=== PATIENT | male | born 1955 | race Caucasian/White ===

== ENCOUNTER 2017-12-24 14:37 | Inpatient (IN) | payer MEDICAID ==
[~2017-12-24] VITALS: Ht 188 cm; Wt 81.7 kg
--- OUTSIDE RECORDS SUMMARY | ~2017-12-24 | XMS | Clinical Summary ---
Demographics + + + | Address | [address] | | | [place] [address] | + + + | Home Phone | | + + + | Preferred Language | Unknown | + + + | Marital Status | Single | + + + | Sabianism Affiliation | Unknown | + + + | Race | Unknown | + + + | Ethnic Group | Unknown | + + + Author + + + | Author | [facility] | | | and [place] | + + + | Organization | [facility] | | | and [place] | + + + | Address | Unknown | + + + | Phone | Unavailable | + + + Support + + +---------+ + | Name | Relationship | Address | Phone | + + +---------+ + | GIGI CARR | MICHAEL | Unknown | | + + +---------+ + Care Team Providers + +------+ + | Care [employer] Painter [employer]ader Name | Role | Phone | + +------+ + | Danny Hdz | PP | | + +------+ + Allergies No Known Allergies Current Medications + + +---------+---------+------+------+-------+ | Prescription | Sig. | Disp. | Refills | Star | End | Statu | | | | | | t | Date | s | | | | | | Date | | | + + +---------+---------+------+------+-------+ | ibuprofen | Take 800 mg by mouth | | | | | Activ | | (ADVIL,MOTRIN) 800 | every 6 hours as | | | | | e | | MG tablet | needed for Pain. | | | | | | + + +---------+---------+------+------+-------+ | gabapentin | Take one tablet at | 90 | 2 | 02/06 | | Activ | | (NEURONTIN) 300 mg | night only for the | capsule | | 12/25 | | e | | capsuleIndications: | first 5 days then | | | 16 | | | | Cervical | gradually increase | | | | | | | radiculopathy, DDD | up to 3 times daily | | | | | | | (degenerative disc | as tolerated | | | | | | | disease), cervical | | | | | | | + + +---------+---------+------+------+-------+ Active Problems + + + | Problem | Noted Date | + + + | Cervical radiculopathy | 03/05/2016 | + + + | DDD (degenerative disc disease), cervical | 03/05/2016 | + + + | Chronic left shoulder pain | 03/05/2016 | + + + Family History + + +---------+ + | Medical History | Relation | Name | Comments | + + +---------+ + | Cancer | Brother | Anup | | | | | [place] | | + + +---------+ + | No Known Problems | Child | | | + + +---------+ + | No Known Problems | Child | | | + + +---------+ + | No Known Problems | Child | | | + + +---------+ + | Cancer | Father | LC | Leukemia | | | | Javier | | + + +---------+ + | Heart failure | Maternal | RA | | | | Grandfath | Cruzen | | | | er | | | + + +---------+ + | No Known Problems | Maternal | G. | | | | Grandmoth | Cruzen | | | | er | | | + + +---------+ + | Cancer | Mother | Edga | Skin | | | | [place] | | + + +---------+ + | Heart failure | Mother | Edga | | | | | [place] | | + + +---------+ + | Arthritis | Other | | | + + +---------+ + | Diabetes | Other | | | + + +---------+ + | Other (see comment) | Other | | Kidney problems | + + +---------+ + | No Known Problems | Paternal | | | | | Grandfath | | | | | er | | | + + +---------+ + | No Known Problems | Paternal | | | | | Grandmoth | | | | | er | | | + + +---------+ + + + + + + | Relation | Name | Status | Comments | + + + + + | Brother | | | Cancer | | | | (Age | | | | | 65) | | + + + + + | Brother | Anup | | | | | [place] | | | + + + + + | Child | | Alive | | + + + + + | Child | | Alive | | + + + + + | Child | | Alive | | + + + + + | Child | | Alive | | + + + + + | Child | | | | + + + + + | Child | | | | + + + + + | Child | | | | + + + + + | Father | LC | | Cancer | | | [place] | (Age | | | | | 80) | | + + + + + | Maternal Grandfather | RA Quezada | | Heart failure | | | | (Age | | | | | 65) | | + + + + + | Maternal Grandmother | Denny Quezada | | Old age | | | | (Age | | | | | 80) | | + + + + + | Mother | Edga | | Skin cancer | | | [place] | (Age | | | | | 85) | | + + + + + | Other | | | | + + + + + | Paternal Grandfather | | Other | Not listed | + + + + + | Paternal Grandmother | | Other | Not listed | + + + + + Social History + +-------+ +--------+ + | Tobacco Use | Types | Packs/Day | Years | Date | | | | | Used | | + +-------+ +--------+ + | Former Smoker | | | 20 | Quit: 02/27/2000 | + +-------+ +--------+ + + +------+---+---+ | Smokeless Tobacco: | Chew | | | | Current User | | | | + +------+---+---+ + + | Comments: 1-2 cans per day | + + + + +---------+ + | Alcohol Use | Drinks/We | oz/Week | Comments | | | ek | | | + + +---------+ + | Yes | 0 | 0.0 | social | | | Standard | | | | | drinks or | | | | | | | | | | equivalen | | | | | t | | | + + +---------+ + + + + | Sex Assigned at | Date Recorded | | | | + + + | Not on file | | + + + Last Filed Vital Signs + + + + | Vital Sign | Reading | Time Taken | + + + + | Blood Pressure | 129/75 | 03/05/20162 PST | + + + + | Pulse | 56 | 03/05/20161101 PST | + + + + | Temperature | - | - | + + + + | Respiratory Rate | - | - | + + + + | Oxygen Saturation | - | - | + + + + | Inhaled Oxygen | - | - | | Concentration | | | + + + + | Weight | 82.8 kg (182 lb 9.6 | 03/05/20161101 PST | | | oz) | | + + + + | Height | 188 cm (6' 2") | 03/05/20161101 PST | + + + + | Body Mass Index | 23.44 | 03/05/20161101 PST | + + + + Plan of Treatment + + + + + | Health Maintenance | Due Date | Last Done | Comments | + + + + + | Hepatitis C | | | | | Screening | 5 | | | + + + + + | Vaccine: | | | | | Dtap/Tdap/Td (1 - | 4 | | | | Tdap) | | | | + + + + + | Colorectal Cancer | | | | | Screening | 5 | | | | (Colonoscopy) | | | | + + + + + | Vaccine: Zoster (1 | | | | | of 2) | 5 | | | + + + + + | Vaccine: Influenza | | | | | (#1) | 8 | | | + + + + + Results Not on filefrom Last 3 Months Insurance + +--------+ +--------+ +---------+ | Payer | Benefi | Subscriber | Type | Phone | Address | | | t Plan | ID | | | | | | / | | | | | | | Group | | | | | + +--------+ +--------+ +---------+ | GIVTED | SAIF | [id number] | [place] | [phone] | | WC | | ity | [phone] | | + +--------+ +--------+ +---------+ + +--------+ +--------+ + + | Guarantor Name | Accoun | Relation to | Date | Phone | Billing Address | | | t Type | Patient | of | | | | | | | | | | + +--------+ +--------+ + + | DELFINA CARR | Person | Self [birth year] Home: | [address] [place], | | | al/Fam | | 1955 | [phone] | | | [place] | | | [phone] | | + +--------+ +--------+ + + | DELFINA CARR | Worker | Self | [birth year] | Home: | [address], | | | s Comp | | 1956 | [phone] | | | | | | [phone] | | + +--------+ +--------+ + +
--- NOTE | 2017-12-24 19:55 | NUR ---
PT ARRIVES TO ROOM 127 MED [facility] FOR MENINGITIS. PT IS ALERT AND ORIENTED, WALKS SELF TO BED. C/O 8/10 HEADACHE AT THIS TIME, VERY SENSITIVE TO LIGHTS. ASSESSMENT DONE, PT TAKING SIPS OF WATER, ROOM DARKENED.
--- NOTE | 2017-12-24 20:35 | NUR ---
OXYCODONE GIVEN FOR HEADACHE PAIN, WILL CONT TO MONITOR. 1L BOLUS STARTED AND ABX INFUSING.
--- NOTE | 2017-12-24 21:40 | NUR ---
PT STATES PAIN IS GOING DOWN, NOW 10/14.
--- NOTE | 2017-12-25 01:01 | NUR ---
PT WAS GIVEN OXYCODONE FOR 09/14 HEADACHE, TOOK SOME WATER WITH IT AND SHORTLY AFTER WAS UP AT SIDE OF THE BED VOMITTING, APPRROX 25 ML YELLOW- NO PILLS SEEN IN EMESIS BAG. 4MG IV ZOFRAN GIVEN AND WILL CONT TO MONITOR PAIN AND NAUSEA. PT ALSO UP TO BEDSIDE TO VOID INTO URINAL, HR STEADY WHILE UP.
--- NOTE | 2017-12-25 02:00 | NUR ---
PT RESTING WITH EYES CLOSED, RESP EVEN UNLABORED.
--- NOTE | 2017-12-25 04:28 | NUR ---
AWAKENS, STATE HEADACHE IS STILL THERE BUT ABLE TO SLEEP. NO NAUSEA AT THIS TIME.
--- NOTE | 2017-12-25 06:33 | NUR ---
PT CALLS, REQUESTING PAIN MED. CALLED FOR IV PAIN MED, ORDER GIVEN FOR MORPHINE. MORPHINE 2MG IV GIVEN FOR 7 HEADACHE PAIN WITH 4MG IV ZOFRAN FOR NAUSEA. PT REMAINS VERY SENSITIVE TO LIGHT AND MOVEMENT, BECOMES NAUSEATED AND PAINFUL WITH MOVING SELF IN BED.
--- NOTE | 2017-12-25 09:52 | NUR ---
DR MIJARES INTO SEE PT AT THIS TIME, NEW ORDERS.
--- NOTE | 2017-12-25 11:31 | NUR ---
PT REMAINS ASLEEP AT THIS TIME, TALKED WITH PT'S DAUGHTER VIA PHONE ALL QUESTIONS ANSWERED AT THIS TIME. TALKED WITH PT EARLY ABOUT TALKING WITH HER, AND HE APPROVED.
--- NOTE | 2017-12-25 12:21 | NUR ---
PT CONTIOUES TO SLEEP AT THIS TIME, RESP RATE EVEN AND UNLABORED AT THIS TIME.
--- NOTE | 2017-12-25 14:00 | NUR ---
PT HAS BEEN SLEEPING WELL THIS AFTERNOON. HE IS CURRENTLY AWAKE AT THIS TIME, VS TAKEN SEE FLOW SHEET. PT C/O PAIN, MORPHINE 2 MG IVP GIVEN AND ALSO GAVE PT SOME CHICKEN BROOTH AND FRESH ICE WATER.
--- NOTE | 2017-12-25 15:10 | NUR ---
PT PASSING GAS, BURPING, SOME NAUSEA WITH THE LIQUIDS, BUT AT THIS TIME ABLE TO KEEP THINGS DOWN. PT IS GLAD THAT WE LET HIM SLEEP TODAY. HE IS FEELING BETTER, BUT NOT GREAT YET.
--- NOTE | 2017-12-25 16:19 | NUR ---
PT TOLERATED THE CLEAR LIQUIDS FAIR, CONTIOUES TO BED IN BED, ROOM HAS REMAINED DARK ALL DAY.
--- NOTE | 2017-12-25 16:30 | NUR ---
REPORT CALLED TO FARIBA BERNAL ALL QUESTIONS ANSWERED AT THIS TIME. ALL PERSONAL BELONGINGS AND CURRENT MEDICATIONS SENT WITH PT. PT TRASPORTED VIA BED.
--- NOTE | 2017-12-25 16:46 | NUR ---
PT HAS ARRIVED INTO ROOM 125 ON M/S FROM CCU AT THIS TIME. PT SENSITIVE TO LIGHT AND SOUND, STATING HIS PAIN IS A 8 OUT OF 10 GENERALIZED FROM THE NECK UP RADIATING THROUGHOUT HIS HEAD. ROOM AIR. D5LR RUNNING AT 100 ML/HR AND ACYCLOVIR AT 266 ML/HR. PT STATES HE IS FEELING NAUSEOUS WELL. ASSESSMENT COMPLETED. DROPLET PRECAUTIONS IN PLACE. CALL LIGHT WITHIN REACH. WILL CONTINUE TO MONITOR.
--- NOTE | 2017-12-25 18:05 | NUR ---
PT VS STABLE SINCE ARRIVING TO M/S FROM CCU. PT ARRIVED WITH A C/O NECK AND HEAD PAIN OF AN 8/10. PT ALSO STATED HE WAS NAUSEOUS AND ANXIOUS. PT STATES HIS SENSITIVITY TO LIGHT AND NOISE AT THIS TIME, SO LIGHTS HAVE ALL BEEN TURNED OFF AND THIS RN PLACED A SIGN ON DOOR REMINDING THOSE WHO ENTER TO TALK QUIETLY. PRN ZOFRAN, MORPHINE AND ATIVAN GIVEN SHORTLY PT ARRIVED INTO ROOM, ALL PROVIDING RELIEF OF SYMPTOMS FOR THE PT. ROOM AIR. DROPLET PRECAUTIONS IN PLACE. PT PLEASANT AND COOPERATIVE DESPITE HIS UNCOMFORTABLE STATE. HE STATES HE FEELS WEAK, BUT STRENGTH ASSESSMENT WNL. PT HAS NO QUESTIONS OR CONCERNS AT THIS TIME. FLUIDS RUNNING CONTINUOUSLY. HE'S RESTING IN BED WITH ALL LIGHTS OFF. CALL LIGHT WITHIN REACH. FALL PRECAUTIONS IN PLACE. WILL CONTINUE TO MONITOR.
[2017-12-25] MEDS ORDERED: IBU-200200 MG PO (18:25)
--- NOTE | 2017-12-25 18:25 | NUR ---
MED REC COMPLETE
--- NOTE | 2017-12-25 19:15 | NUR ---
REPORT RECIEVED. PT ASLEEP IN BED. NO REQUESTS AT THIS TIME. CALL LIGHT WITHIN REACH.
--- NOTE | 2017-12-25 22:15 | NUR ---
IN ROOM FOR SHIFT ASSESSMENT. EVENING MEDS ADMINISTERED PER EMAR. . PT AOX4. APPROPRIATE, POLITE. PT'S IV RUNNING WNL. PT C/O PAIN OF 6/10 RELATED TO NECK AND HEAD. PT STATES THE PAIN IS EXACERBATED WITH MOVEMENT. PT GIVEN SCHEDULED APAP, AND PRN PAIN MEDS WELL PER EMAR. PT C/O NAUSEA AND GIVEN PRN ZOFRAN. AFTER PRN ZOFRAN ADMINISTERED, PT C/O NAUSEA, AND VOMITING OF SMALL AMOUNT. PT GIVEN PRN PHENERGAN PER EMAR. PT TOLERATED PHENERGAN WELL, NO C/O N/V AFTER ADMINISTRATION. PT'S LS CLEAR ON RIGHT SIDE. EPIRATORY PLEURAL RUB NOTED ON LEFT SIDE IN ALL LOBES. PT DENIES SOB/CP. BT ACTIVE, ABD NONTENDER. PT GIVEN WARM CHICKEN BROTH PER PT REQUEST. WARM BLANKET PROVIDED. IV SITE IN RAC DRESSING WAS CHANGED WITH NEW OPSITE. IV REMAINS SL, FLUSHES WELL. NO FURTHER REQUESTS AT THIS TIME. CALL LIGHT WITHIN REACH.
--- NOTE | 2017-12-26 00:30 | NUR ---
PT ASLEEP IN BED. NO NEEDS AT THIS TIME. IV RUNNING WNL. CALL LIGHT WITHIN REACH. HYDRATION AT BEDSIDE.
--- NOTE | 2017-12-26 02:30 | NUR ---
PT RESTING IN BED. DENIES NEED FOR PAIN MEDICATION. DENIES ANY NAUSEA. HYDRATION AT BEDSIDE. CALL LIGHT WITHIN REACH. NO REQUESTS AT THIS TIME.
--- NOTE | 2017-12-26 06:13 | NUR ---
PT C/O PAIN OF 8/10 WHILE UP TO VOID IN URINAL. PT STATES THAT PAIN REMAINS IN NECK/ HEAD AREA. PT ASKS FOR PRN PAIN/NAUSEA MEDICATION. PT GIVEN PRN PAIN/ NAUSEA MEDICATION PER EMAR. SCHEDULED ABX HUNG. NO FURTHER REQUESTS. CALL LIGHT WITHIN REACH.
--- NOTE | 2017-12-26 06:14 | NUR ---
PT HAS SLEPT THROUGHOUT MOST OF THE NIGHT. PT HAS RECIEVED PRN PAIN MEDICATION X2 WELL PRN NAUSEA MEDICATION X3. PT DID HAVE EPISODE OF NAUSEA/ VOMITING IN BEGINNING OF SHIFT. HAS NOT VOMITED SINCE. PT REMAINS INDEPENDENT IN ROOM 1 PERSON SBA. APPETITE REMAINS SCARCE. PT GIVEN CHICKEN BROTH BUT DID NOT TOLERATE WELL DUE TO NAUSEA. PT'S PAIN HAS FLUCTUATED BETWEEN 6-8/10 THROUGHOUT THE NIGHT. PT STATES THAT THE ONLY THING THAT HELPS IS THE PRN MORPHINE. PT REMAINS SENSITIVE TO LIGHT/NOISE. EYE SHADE/EAR PLUGS PROVIDED FOR SLEEP. VITAL SIGNS REMAIN STABLE. IV RUNING WNL. NO REQUESTS AT THIS TIME. CALL LIGHT WITHIN REACH.
--- NOTE | 2017-12-26 07:44 | NUR ---
RECIEVED REPORT JUST OUTSIDE PT'S ROOM DOOR, PT IS VERY SENSITIVE TO SOUNDS. THEN WENT IN ROOM WITH GABE MARQUIS, AND DID AM ASSESSMENT. PT HAVING 8/10 HEADACHE AND NECK PAIN. GIVEN PRN OXYCODONE AND ATIVAN BY GABE MARQUIS. PT DENIED OTHER NEEDS. PERSONAL SUPPLIES AND CALL LIGHT IN REACH.
--- NOTE | 2017-12-26 08:31 | NUR ---
PT HAD 100 CC EMESIS. GAVE PHENERGAN 6.25 MG IV PRN. PT CONTINUED TO RATE HEAD AND NECK PAIN 11/14, GAVE MORPHINE 2 MG IV PRN.
--- NOTE | 2017-12-26 09:33 | NUR ---
PATILIYAH IN BED RESTING. PATIENT SIPPING IN TEA AND ATE 1 CRACKER. CALL LIGHT IN REACH. NO FURTHER NEEDS AT THIS TIME.
--- NOTE | 2017-12-26 09:42 | NUR ---
PT IN BED, AWAKE, ALERT. RATES PAIN TO HEAD AND NECK 6/10, STATED THIS IS TOLERABLE. PT DENIES FURTHER NAUSEA AT THIS TIME. TOLERATED A CRACKER. PT REPORTS APETITE POOR DUE TO INTERMITANT NAUSEA.
--- NOTE | 2017-12-26 10:45 | NUR ---
PT REPORTED 7/10 PAIN TO HEAD AND NECK, GAVE MORPHINE 2 MG IV PRN. PT DENIED NAUSEA, REPORTED HE WAS ABLE TO EAT 2 CRACKERS, DRINK SOME WATER, AND SOME TEA. PERSONAL SUPPLIES AND CALL BUTTON IN REACH.
--- NOTE | 2017-12-26 11:45 | NUR ---
PT IN BED, RESTING QUIETLY. REPORTED PAIN TO HEAD AND NECK IMPROVED, AT A TOLERABLE LEVEL AT THIS TIME. RATED PAIN 6/10. DENIED NAUSEA, HAS EATEN 3 CRACKERS, AND IS STILL SIPPING WATER AND TEA. PERSONAL SUPPLIES AND CALL LIGHT IN REACH.
--- NOTE | 2017-12-26 15:48 | NUR ---
PT C/O NAUSEA. GAVE ZOFRAN 4 MG IV PRN. ALSO GAVE PT ACETAMINOPHEN 1000 MG PO SCHEDULED. PT WAS ABLE TO EAT 2 BITES OF GRILLED CHEESE SANDWICH, UNABLE TO EAT ANY MORE. PERSONAL SUPPLIES AND CALL LIGHT IN REACH. PT RATED PAIN TO HEAD AND NECK 7/10, LIGHTS OFF, CURTAIN AND DOOR CLOSED, AND BLINDS PULLED CLOSED FOR PT'S COMFORT.
--- NOTE | 2017-12-26 16:07 | NUR ---
VENESSA RN NOTIFIED THIS RN THAT PT'S IV TO RIGHT AC WAS INADVERTANTLY PULLED OUT BY PT. VENESSA RN NOTIFIED THIS RN THAT IV INSERTION SITE BLED, BUT BLEEDING WAS STOPPED WITH 2X2 GAUZE AND TAPE, AND THAT IV CATHETER TIP WAS INTACT. THIS RN ASSESSED SITE, REPLACED GAUZE AND TAPE WITH 2X2 GAUZE AND COBAN. SITE WNL. PT EATING CHICKEN NOODLE SOUP, TOLERATING WELL THUS FAR.
--- NOTE | 2017-12-26 17:02 | NUR ---
PT UP IN ROOM INDEPENDANTLY, STEADY ON FEET. WISHES TO KEEP ROOM DIM AND QUIET DUE TO MENENGITIS. ON DROPLETTE PRECAUTIONS. HAS HAD A POOR APETITE THIS SHIFT, WITH INTERMITANT EPISODES OF NAUSEA, AND ONE EPISODE OF EMESIS THIS AM. PT RECIEVED PRN ZOFRAN THIS EVENING FOR C/O NAUSEA, AND PT REPORTED THIS WAS EFFECTIVE. PT DID DRINK THE BROTH FROM CHICKEN NOODLE SOUP, AND EAT ONE CRACKER AT DINNER. OTHER THAN THAT, PT HAD 3 CRACKERS, 2 BITES OF A GRILLED CHEESE SANDWICH, AND DRANK TEA AND WATER THIS SHIFT. HAS REPORTED HEAD AND NECK PAIN 6-8/10 THIS SHIFT, REPORTS 6/10 IS A TOLERABLE LEVEL OF PAIN. PT REPORTS POOR PAIN RELIEF WITH PRN OXYCODONE, BETTER PAIN RELIEF FROM PRN MORPHINE. PT HAS RECIEVED MORPHINE 2 MG IV PRN FOR PAIN COVERAGE TODAY. PT'S URINE OUTPUT IS QUANTITY SUFFICIENT, PT URINATES IN URINAL. NO BM THUS FAR THIS SHIFT. PT ALERT, ORIENTED X 4. PT SENSITIVE TO LIGHT, NOISE.
--- NOTE | 2017-12-26 17:50 | NUR ---
PT IN BED, REPORTS THAT THE PAIN TO HIS NECK AND HEAD HAS IMPROVED SOME, RATED PAIN 6/10, REPORTED THAT THIS IS A TOLERABLE LEVEL OF PAIN FOR HIM. DENIED NEEDS. PERSONAL SUPPLIES AND CALL LIGHT IN REACH.
--- NOTE | 2017-12-26 19:30 | NUR ---
REPORT RECIEVED. PT RESTING IN BED. NO NEEDS AT THIS TIME. CALL LIGHT WITHIN REACH.
--- NOTE | 2017-12-26 21:43 | NUR ---
SPOKE WITH ABOUT PATIENT'S ONGOING NAUSEA AND INABILITY TO TOLERATE PO MEDS. NEW ORDERS RECEIVED. VERIFIED USING READ BACK METHOD.
--- NOTE | 2017-12-26 21:55 | NUR ---
IN ROOM FOR SHIFT ASSESSMENT. EVENING MEDS GIVEN. PRN PAIN/ NAUSEA MEDS GIVEN. EDUCATION PROVIDED FOR NEW MED ORDERS. PT AGREEABLE TO NEW MEDICATIONS. QUESTIONS ANSWERED. PT AOX4. APPROPRIATE, PLEASANT. PT REMAINS TO HAVE PAIN RELATED TO NECK/VELAZCO. LIGHT/NOISE SENSITIVITY REMAINS PRESENT. PT'S LS CLEAR IN LEFT SIDE. RIGHT SIDE HAS EXPIRATORY WHEEZES IN BASES. PT DENIES ANY SOB/CP. BT ACTIVE. PT DENIES BM TODAY. ABD NON TENDER. PT GIVEN ICE CREAM PER PT REQUEST. DENIES FURTHER NEEDS. CALL LIGHT WITHIN REACH. HYDRATION AT BEDSIDE.
--- NOTE | 2017-12-26 23:30 | NUR ---
PT SOUND ASLEEP. NO REQUESTS AT THIS TIME. CALL LIGHT WITHIN REACH.
--- NOTE | 2017-12-27 02:09 | NUR ---
PT STATES THAT HE HAS BEEN SLEEPING WELL, AND DENIES NEED FOR PRN PAIN OR NAUSEA MEDICATION. NO NEEDS AT THIS TIME. CALL LIGHT WITHIN REACH. IV RUNNING WNL.
--- NOTE | 2017-12-27 06:06 | NUR ---
PRN PAIN MEDICATION GIVEN. SCHEDULED ABX STARTED. IV RUNNING WNL. PT UP TO SHOWER. IV COVERED. PT DENIES ANY NAUSEA. PAIN RATED AT 6/10. PT DENIES ANY FURTHER NEEDS AT THIS TIME. CALL LIGHT WITHIN REACH.
--- NOTE | 2017-12-27 06:26 | NUR ---
PATIENT FINISHED WITH SHOWER. BED LINENS CHANGED. FRESH GOWN PROVIDED. PATIENT WAS SOMEWHAT SHAKEY WHEN AMBULATING AND IN THE SHOWER. HE DENIES FEELING LIGHTHEADED BUT HE DOES HAVE A VELAZCO AND NAUSEA. PRN MORPHINE GIVEN RIGHT BEFORE SHOWER MAY HAVE CONTRIBUTED TO THE UNSTEADY GAIT. PRN COMPAZINE PROVIDED. PATIENT REPORTS FEELING MUCH BETTER AFTER SETTLING BACK INTO BED.
--- NOTE | 2017-12-27 06:34 | NUR ---
KEEP PT ROOM QUIET AND DARK DUE TO SENSITIVITY FROM MENINGITIS. ON DROPLET PRECAUTIONS. PT CONTINUES TO HAVE CONSISTANT 6/10 PAIN IN NECK AND HEAD. PT RECIEVED PRN MORPHINE X3. PRN ATIVAN/COMPAZINE FOR NAUSEA. PT INDEPENDENT IN ROOM. USES URINAL AT BEDSIDE. NO BM THIS SHIFT. PT DID TOLERATE ICE CREAM AT BEGINNING OF SHIFT. THIS MORNING PT UP TO SHOWER AND C/O NAUSEA AND SEVERAL EPISODES OF EMESIS. SEE EMAR. PT REPORTS HE PREFERS MORPHINE FOR PAIN RELIEF, AND THAT OTHER PRN MEDICATIONS ARE NOT EFFECTIVE. PT'S URINE OUTPUT QS. SCHEDULED IV ABX GIVEN. IV RUNNING WNL. PT AOX4. 1 PERSON ASSIST TO SHOWER THIS MORNING.
--- NOTE | 2017-12-27 09:25 | NUR ---
PT AWAKE IN BED, ALL LIGHTS OFF AND CURTAINS CLOSED. PT REPORTS SENSTIVITY TO LIGHT AND SOUND. REPORTING HEAD AND NECK PAIN 7/10 AT THIS TIME. MEDICATED WITH IV MORPHINE. REPORTS NAUSEA AND HAD SMALL EMESIS AFTER ATTEMPTING TO EAT BREAKFAST THIS MORNING. MEDICATED WITH ATIVAN. PT ALERT AND ORIENTED. IV INFUSING WNL. CALL LIGHT WITHIN REACH.
--- NOTE | 2017-12-27 10:58 | NUR ---
pt is resting in bed with call light in reach. pt ate half of his breakfst but became nauseous and vomitted 50ml. nurse aware. pt asked for urinal to be emptied and did not need anything else at the moment
--- NOTE | 2017-12-27 12:25 | NUR ---
PT ATTEMPTING TEA AND CRACKERS. MOSTLY RESTING. INDPENDENT IN ROOM. CALL LIGHT WITHIN REACH.
--- NOTE | 2017-12-27 14:30 | NUR ---
PT REPORTED THAT HE HAD LARGE EMESIS. MEDICATED WITH IV ATIVAN, AND MORPHINE FOR HEADACHE PAIN. ATTEPMTING TO EAT A COUPLE BITES OF CRACKERS AFTER MED ADMINISTRATION. INDEPENDENT IN ROOM. RESTING IN BED, CALL LIGHT WITHIN REACH.
--- NOTE | 2017-12-27 14:52 | NUR ---
pt is resting in bed safely with call light in reach. pt is very nauseous and dry heaving. nurse notified. pt asked for a 7-up and some crackers to help settle his stomach.
--- NOTE | 2017-12-27 16:32 | NUR ---
PT RESTING IN BED, DENIES NEEDS OR CONCERNS AT THIS TIME. CALL LIGHT WITHIN REACH.
--- NOTE | 2017-12-27 17:21 | NUR ---
PT CONT TO HAVE PAIN AND NAUSEA/VOMITING THROUGHOUT SHIFT. DENIES BM. QS URINE OUTPUT. PT ATTEMPTED TO EAT A FEW TIMES BUT HAD EMESIS. INDEPENDENT IN ROOM. ALERT AND ORIENTED. ON DROPLET PRECAUTIONS. SCHEDULED FOR REPEAT LUNBAR SPINAL IN AM. RECIEVING IV ACYCLOVIR.
--- NOTE | 2017-12-27 17:57 | NUR ---
pt medicated with iv phenergan for complaint of nausea. had another large emesis, approx 300ml. daughter at bedside. call light within reach.
--- NOTE | 2017-12-27 19:13 | NUR ---
pt has been extremely nauseous all day and did not want to eat dinner. pt is resting safely in bed with call light in reach and did not need anything at the moment
--- NOTE | 2017-12-27 19:20 | NUR ---
REPORT RECIEVED. PT RESTING IN BED. NO REQUESTS AT THIS TIME. CALL LIGHT WITHIN REACH.
--- NOTE | 2017-12-27 22:10 | NUR ---
IN ROOM FOR SHIFT ASSESSMENT. EVENING MEDS GIVEN. IV RUNNING WNL. PT AOX4. PT REMAINS TO BE SENSITIVE TO LIGHT/SOUND. PT C/O MARCELINO LEVEL OF 5/10 IN BACK OF NECK/HEAD. PRN PAIN MEDICATION GIVEN PER EMAR. PT C/O SLIGHT NAUSEA. PRN NAUSEA MEDS GIVEN WELL. PT TOLERATED WELL. PT'S LS CLEAR, BT ACTIVE, ABD NONTENDER. PT DENIES BM TODAY. PT STATES THAT HE IS FEELING A LITTLE BETTER AFTER GETTING A GOOD AMOUNT OF SLEEP RECENTLY. ICE CREAM GIVEN PER PT REQUEST. HYDRATION AT BEDSIDE. DENIES FURTHER NEEDS. CALL LIGHT WITHIN REACH.
--- NOTE | 2017-12-28 01:22 | NUR ---
PT SOUND ASLEEP. NO NEEDS AT THIS TIME. CALL LIGHT WITHIN REACH.
--- NOTE | 2017-12-28 02:25 | NUR ---
PT SITTING UP AT BEDSIDE TO VOID IN URINAL. PT STATES THAT HE IS FEELING BETTER, AND HAS BEEN ABLE TO EAT A PIECE OF CHEESE AND SOME CRACKERS W/O ANY NAUSEA. PT DECLINES ANY NAUSEA CURRENTLY. C/O PAIN IN NECK 09/14. PT GIVEN PRN PAIN MEDICATION WELL HOT PACK FOR BEHIND NECK. PT TOLERATED WELL. NO FURTHER NEEDS AT THIS TIME. CALL LIGHT WITHIN REACH.
--- NOTE | 2017-12-28 06:07 | NUR ---
PT STATES THAT HE IS FEELING BETTER. STATES THAT HIS PAIN IS AT A 4-5/10. STATES THAT HE IS COMFORTABLE WITH THAT AND DOES NOT WANT ANY PRN PAIN MEDS. NO C/O NAUSEA. PT STATES THAT HE HAS BEEN ABLE TO HAVE A COUPLE PIECES OF CHEESE AND CRACKERS WITH SIPS OF WATER. PT STATES THAT HE WOULD LIKE TO HAVE A CUP OF COFFEE. WILL MAKE FRESH COFFEE FOR PT PER REQUEST. PT EXCITED THAT HE IS STARTING TO FEEL BETTER AND IS HOPEFUL FOR CONTINUED IMPROVEMENT. NO OTHER REQUESTS AT THIS TIME. CALL LIGHT WITHIN REACH.
--- NOTE | 2017-12-28 08:00 | NUR ---
PT SITTING UP IN BED RESTING AT THIS TIME. PT IS VERY PLEASANT, CALM AND COOPERATIVE. PT IN VERY GOOD SPIRITS, STATING THAT HE FEELS "COMPLETELY BETTER" THAN HE WAS FEELING YESTERDAY. LIGHTS ARE OFF BUT PT STATES THAT THE LIGHT IS NO LONGER BOTHERING HIM. PT STATES THAT HE HAS SOME UPPER NECK PAIN BUT THAT IT IS TOLERABLE AND THE BEST IT HAS FELT IN DAYS. NO C/O N/V. PT APPETITE GREATLY IMPROVED ACCORDING TO PT. HE STATES THAT HE'S BEEN ABLE TO EAT CRACKERS AND DRINK WATER/TEA WITHOUT N/V ISSUES. PT STRONG AND STEADY ON HIS FEET, AMBULATING INDEPENDENTLY IN ROOM. D5LR RUNNING AT 100 ML/HR. ROOM AIR. PT STATES THAT IT HAS BEEN NUMEROUS DAYS SINCE HIS LAST BM BUT THAT HE IS PASSING GAS, THAT HIS BASELINE IS "EVERY FEW DAYS ANYWAYS," AND THAT HIS LITTLE PO INTAKE COULD BE CONTRIBUTING WELL. PT IS STATING THAT HE DOESN'T THINK HE NEEDS SPINAL TAP ANYMORE SINCE HE IS FEELING SO WELL. I WILL FOLLOW UP WITH DR. JULIO IN REGARDS TO THIS CONCERN. NO OTHER QUESTIONS AT THIS TIME. CALL LIGHT WITHIN REACH. DROPLET PRECAUTIONS REMAIN IN PLACE. WILL CONTINUE TO MONITOR.
--- NOTE | 2017-12-28 08:04 | NUR ---
THIS RN AND REFINING MACHINE OPERATOR Adama MOYA JUST LEFT PT'S BEDSIDE AND SPOKE TO DR. JULIO ON PHONE IN REGARDS TO PT WONDERING IF HE STILL NEEDS TO HAVE SPINAL TAP. PT TOLD US BOTH THAT HE FEELS "100% BETTER COMPARED TO YESTERDAY." PT IS APPREHENSIVE ABOUT GETTING TAPPED AND WONDERING IF THIS IS STILL NECESSARY AT THIS TIME. DR. JULIO INFORMED VIA TELEPHONE.
--- NOTE | 2017-12-28 08:09 | NUR ---
PER DR. JULIO, SPINAL TAP IS ON HOLD AT THIS TIME. JOSÉ MIGUEL MOYA IN AGREEANCE.
--- NOTE | 2017-12-28 10:12 | NUR ---
PT RESTING COMFORTABLY IN THE DARK AT THIS TIME WITH VISITOR AT BEDSIDE. PT STATES THAT HE STILL HAS NO PAIN, NO N/V, AND SAID THAT HIS BREAKFAST WENT WELL AND ABLE TO KEEP IT DOWN WITHOUT VOMITTING. HE EVEN WAS REQUESTING A SECOND CUP OF COFFEE. HE HAS NO QUESITONS OR CONCERNS, AND IS IN GOOD SPIRITS DUE TO HIS FEELING SO MUCH BETTER THAN YESTERDAY. CALL LIGHT WITHIN REACH. WILL CONTINUE TO MONITOR.
--- NOTE | 2017-12-28 10:23 | NUR ---
PATIENT RESTING IN BED, FAMILY IN ROOM. PATIENT STATES HE SHOWERED LAST NIGHT AND WASHED UP THIS MORNING AND DOES NOT WANT A SHOWER. PATIENT CALL LIGHT IN REACH. NO OTHER NEEDS AT THIS TIME.
[2017-12-28] MEDS ORDERED: AMOX TR-K CLV1 EAC1 PO (11:00)
[2017-12-28] MEDS ORDERED: PSEUDOEPHEDRINE30 MG PO (11:01)
[2017-12-28] MEDS ORDERED: PROMETHAZINE HC25 M1 PO (11:02)
== END 2017-12-28 12:05 | disposition home or self-care (01) | DRG 76 ==
LOC: ED 14:37 → CCU 14:38 → MS 14:38
PROVIDERS: ADMIT Student in an Organized Health Care Education/Training Program
DX: A87.9 Viral meningitis, unspecified (principal); J01.80 Other acute sinusitis; F17.210 Nicotine dependence, cigarettes, uncomplicated
CPT/HCPCS: 36415; 62270; 70450; 71045; 80048; 80053; 81001; 82945; 83605; 83690; 83735; 84157; 85025; 85032; 86140; 86162; 87536; 89051; 96374; 96375; 96376; 99285; J0133; J0290; J0696; J0780; J1170; J1650; J2060; J2270; J2405; J2550; J3370; J7030; J7120

== ENCOUNTER 2018-06-18 19:01 | Observation (INO) | payer OTHER ==
[~2018-06-18] VITALS: Ht 188 cm; Wt 79.7 kg
[~2018-06-18 19:01] MED LIST: ACYCLOVIR400 MG PO; ACYCLOVIR800 MG PO; AMOX TR-K CLV1 EAC1 PO; IBU-200200 MG PO; PROMETHAZINE HC25 M1 PO; PSEUDOEPHEDRINE30 MG PO
[2018-06-18] MEDS ORDERED: TAMSULOSIN HCL0.4 MG PO (19:15)
--- NOTE | 2018-06-18 23:00 | NUR ---
IN ROOM FOR ASSESSMENT PT RESTING IN BED, AOX4, PT C/O SOME NAUSEA AT THIS TIME WELL VELAZCO/NECK PAIN, RATED 6/10, PT DID HAVE SMALL AMOUNT OF EMESIS APPEARS TO BE BILE, PT STATES THAT EMESIS INCREASES VELAZCO/NECK PAIN. PT GIVEN PRN REGLAN WELL PRN VELAZCO MED PER EMAR, PT DID DRY HEAVE WHEN TRYING TO SWALLOW THE PILL INITIALLY BUT WAS ABLE TO GET IT DOWN. ASSESSMENT COMPLETE. IV FLUIDS INFUSING PER EMAR WNL. BT HYPOACTIVE, LS CLEAR, ON RA, NO C/O SOB/CP, NO COUGH NOTED, PULSES STRONG, REGULAR. CALL LIGHT WITHIN REACH, FALL PRECAUTIONS IN PLACE.
--- NOTE | 2018-06-18 23:12 | NUR ---
2218 - PT ADMITTED FROM ED, C/O DRYHEAVING AND N/V FOR SEVERAL DAYS. ALERT AND ORIENTED, COOPERATIVE WTIH ADMIT QESTIONS, ORIENTED TO ROOM AND HOSP ROUTINES. ICE PACK TO BACK OF NECK. EYE MASK AND EAR PLUGS GIVEN TO PT. PT C/O MILD NECK PAIN BUT IS ABLE TO BEND AND TURN NECK SLOWLY. C/O MILD EYE SENSITIVITY BUT ABLE TO TOLERATE ALL LIGHTS BEING ON DURING ADMIT QUESTIONAIRE. TURNS SELF IN BED . CALL LIGHT AT BEDSIDE, ICE CHIPS AND FLUIDS
--- NOTE | 2018-06-19 00:12 | NUR ---
PT RESTING IN BED, EYES CLOSED, IV FLUIDS INFUSING PER EMAR WNL, NO REQUESTS AT THIS TIME, CALL LIGHT WITHIN REACH, FALL PRECAUTIONS IN PLACE. PT AGREEABLE TO NOTIFY THIS RN IF NAUSEA OR INCREASED PAIN OCCURS. WILL CONTINUE TO MONITOR.
--- NOTE | 2018-06-19 02:26 | NUR ---
VITALS AND I&OS DONE AND CHARTED. BEDSIDE TABLE AND CALL LIGHT IN REACH.
--- NOTE | 2018-06-19 02:35 | NUR ---
IN ROOM TO ADMIN SCHEDULED MEDS, PT AOX4, ASSESSMENT COMPLETE, VSS, PT DENIES SIGNIFICANT PAIN, PT DENIES SIGNIFICANT NAUSEA, TOLERATED PO MED WELL THIS TIME, NO REQUESTS AT THIS TIME, CALL LIGHT WITHIN REACH. FALL PRECAUTIONS IN PLACE. IV FLUIDS INFUSING PER EMAR WNL.
--- NOTE | 2018-06-19 04:38 | NUR ---
PT AOX4, APPROPRIATE, PT RECEIVED, PRN VELAZCO PAIN MEDICATION X1 THIS SHIFT WELL PRN NAUSEA MEDICATION X1 THIS SHIFT, PT DID HAVE ONE EPISODE OF EMESIS, CONSISTED OF BILE, PT RESPONDED WELL TO NAUSEA MEDICATION AND HAS BEEN ABLE TO REST SINCE ADMINISTRATION, PT USING URINAL TO VOID, GOOD UO, IV FLUIDS INFUSING PER EMAR WNL, PT HAS NOT C/O NECK/VELAZCO PAIN SINCE PREVIOUS PRN MED ADMINISTRATION, CALLS APPROPRIATELY, VSS.
--- NOTE | 2018-06-19 05:32 | NUR ---
VITALS AND I&OS DONE AND CHARTED. EMPTIED GARBAGES. BEDSIDE TABLE AND CALL LIGHT IN REACH. PT NEEDS NOTHING AT THIS TIME.
--- NOTE | 2018-06-19 06:32 | NUR ---
PT GIVEN PRN PAIN MED FOR C/O 10/14 PAIN, PT EDUCATED REGARDING PAIN MANAGEMENT, PT AGREES TO NOTIFY THIS RN IF FURTHER PAIN MEDICATION NEEDED, SCHEDULED ABX ADMINISTERED PER EMAR, PRN ZOFRAN GIVEN FOR C/O NAUSE AFTER PO MEDS TAKEN, PT DID DRY HEAVE ONCE BUT WAS NOT PRODUCTIVE, PT GIVEN HOT PACK FOR BACK OF NECK WELL, NO FURTHER REQUESTS, CALL LIGHT WITHIN REACH, FALL PRECAUTIONS IN PLACE. IV FLUIDS INFUSING PER EMAR WNL.
--- NOTE | 2018-06-19 07:15 | NUR ---
REPORT RECEIVED FROM SPORTS MARKETING SPECIALIST RN. PT AWAKE IN BED, DENIES NAUSEA AT THIS TIME. D5 1/2 NS @ 125ML/HR. DENIES NEEDS, CALL LIGHT IN REACH.
--- NOTE | 2018-06-19 09:00 | NUR ---
SPOKE WITH PATIENT IN ROOM. PATIENT STATES HE L[place]ES AL[place] PATIENT STATES HE IS NORMALLY INDEPENDENT AND AMBULATORY. 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 PATIENT STATES HIS PCP IS DR JULIO AT [facility]. PATIENT STATES BEING VERY HAPPY WITH HIS CARE. PATIENT STATES HE DRIVES AND HE DOES HAVE FRIENDS IN HIS AREA THAT HELP IF NEEDED AND WILL HAVE A RIDE HOME WHEN DISCHARGED. PATIENT STATES HE HAS NO NEED OF DME NORMALLY. PATIENT STATES HE USES [facility] IN [place] FOR RX. PATIENTS WISH IS TO DISCHARGE HOME BEFORE. PATIENT FEELS SAFE TO DO THIS. DISCUSSED HE WILL NEED TO F/U WITH DR JULIO IN OFFICE AND THAT HE NEEDS TO BE UNDERSTANDING OF DIAGNOSIS, TESTS, MEDICATIONS (AND SIDE EFFECTS), AND WHAT TO DO IF HE HAS RETURN OF PROBLEMS AFTER DISCHARGE. PATIENT STATES COMPLETE UNDERSTANDING OF THIS. ALSO DISCUSSED HIS USE OF MARIJUANA. DISCUSSED THE CYCLIC VOMITTING SYNDROME THAT CAN HAPPEN WITH USE OF PRODUCTS. HE STATES UNDERSTANDING. HE STATES HE WILL TALK WITH HIS STORE REGARDING SUGGESTIONS ON THIS FOR PRODUCTS LESS LIKELY TO CAUSE NAUSEA. PATIENT HAS NO OTHER QUESTIONS AT THIS TIME.
--- NOTE | 2018-06-19 09:08 | NUR ---
PATIENT RESTING IN BED. SYSTEMS TECHNOLOGIST IN ROOM. VITAL SIGNS AND I&O DONE. CALL LIGHT WITHIN REACH. NO OTHER NEEDS AT THIS TIME
--- NOTE | 2018-06-19 10:20 | NUR ---
HEADACHE ON 10/14. PRN PAIN MEDICAITON ADMINISTERED. CALL LIGHT IN REACH. NO FURTHER NEEDS.
--- NOTE | 2018-06-19 10:54 | NUR ---
PATIENT RESTING IN BED. PATIENT REFUSED TO TAKE A SHOWER TODAY. CALL LIGHT WITHIN REACH. NO OTHER NEEDS AT THIS TIME
--- NOTE | 2018-06-19 12:00 | NUR ---
PT WITH 1/2 SANDWITCH FOR LUNCH. ATE 100%. NO NAUSEA OR VOMITTING PRESENT.
--- NOTE | 2018-06-19 13:14 | NUR ---
PATIENT RESTING IN BED. VITAL SIGNS AND I&O DONE. PATIENT'S LUNCH ORDERED. HOT TE GIVEN. CALL LIGHT WITHIN REACH. NO OTHER NEEDS AT THIS TIME
--- NOTE | 2018-06-19 14:45 | NUR ---
PT LYING IN BED, REPORTS PAIN 1/10 IN HEAD NOW. DENIES NAUSE/VOMITTING. CALL LIGHT IN REACH. NEW BAG OF FLUIDS REPLACED.
--- NOTE | 2018-06-19 16:18 | NUR ---
PT REPORTING HEADACHE OF 6/10. PRN PAIN MEDICATION ADMINSITERED. CALL LIGHT IN REACH DENEIS FURTHER NEEDS.
--- NOTE | 2018-06-19 17:22 | NUR ---
PATIENT SITTING UP IN BED TAKING DINNER. VITAL SIGNS AND I&O DONE. CALL LIGHT WITHIN REACH. NO OTHER NEEDS AT THIS TIME
--- NOTE | 2018-06-19 17:32 | NUR ---
PT REQUESTING PROPHYLACTIC ZOFRAN FOR DINNER. 4MG ADMINISTERED.
--- NOTE | 2018-06-19 17:56 | NUR ---
PT HAD OK DAY. RESTED MOST THE DAY. ZOFRAN GIVEN BEFORE DINNER TO PREVENT NAUSEA. PT ABLE TO EAT LUNCH WITHOUT INCIDENT. PT HAD A HEADACHE. PRN PAIN MEDICAITON GIVEN. PT WITH GREAT OUTPUT. BOWEL TONE ACTIVE. NO VOMITTING THIS SHIFT.
[2018-06-19] MEDS ORDERED: IBU-200200 MG PO (18:20)
--- NOTE | 2018-06-19 18:20 | NUR ---
MED REC COMPLETE
--- NOTE | 2018-06-19 19:39 | NUR ---
REPORT RECEIVED, PT RESTING IN BED, IV FLUIDS INFUSING PER EMAR WNL, DENIES ANY NEEDS AT THIS TIME, CALL LIGHT WITHIN REACH, FALL PRECAUTIONS IN PLACE.
--- NOTE | 2018-06-19 21:19 | NUR ---
VITALS AND I&OS DONE AND CHARTED. HEAT PACK GIVEN AND FRESH WATER GIVEN PER PT. BEDSIDE TABLE AND CALL LIGHT IN REACH. ALSO Saige BANKS.
--- NOTE | 2018-06-19 21:23 | NUR ---
IN ROOM TO ADMIN SCHEDULED, MEDS, PT AOX4, ASSESSMENT COMPLETE, PT TOLERATED PO MEDS WELL, EATING SHERBET ICE CREAM, PT DENIES ANY NAUSEA AT THIS TIME, PT ALSO DENIES SIGNIFICANT PAIN, RATES PAIN 3/10, DENIES NEED FOR PRN PAIN MEDICATION, HOT PACK TO PT'S NECK AT THIS TIME, PT ABLE TO TUCK CHIN TO CHEST, DENIES PHOTOPHOBIA, LS CLEAR, HEART SOUNDS REGULAR, NO REQUESTS AT THIS TIME, IV FLUIDS INFUSING PER EMAR WNL, CALL LIGHT WITHIN REACH. FALL PRECAUTIONS IN PLACE.
--- NOTE | 2018-06-19 23:17 | NUR ---
INTERNET ARCHITECT ROUNDING NOTE. PT RESTING IN BED AWAKE. COUGH PRESENT. PT DENIES NEEDS AT THIS TIME. CALL LIGHT IN REACH.
--- NOTE | 2018-06-20 01:03 | NUR ---
PT RESTING IN BED, EYES CLOSED, BREATHS EVEN, UNLABORED, NO REQUESTS AT THIS TIME, CALL LIGHT WITHIN REACH. IV FLUIDS INFUSING PER EMAR WNL.
--- NOTE | 2018-06-20 02:22 | NUR ---
SCHEDULED MEDS GIVEN, PT AOX4, ASSESSMENT COMPLETE, PT DENIES NAUSEA, PT RATES VELAZCO/NECK PAIN AT 3/10, PRN PAIN MEDICATION OFFERED TO PT BUT PT DENIED NEED AT THIS TIME, STATING "IM OK, I JUST WANT TO GO BACK TO SLEEP", NO REQUESTS AT THIS TIME, CALL LIGHT WITHIN REACH. IV FLUIDS INFUSING PER EMAR WNL.
--- NOTE | 2018-06-20 06:20 | NUR ---
PT AOX4 THIS SHIFT, APPROPRIATE, IV FLUIDS INFUSING PER EMAR WNL, NO C/O NAUSEA THIS SHIFT, GOOD URINE OUTPUT, PT WAS GIVEN PRN PAIN MEDICATION X1 THIS SHIFT RELATED TO VELAZCO/NECK PAIN, PT WAS ABLE TO SLEEP SOME THIS SHIFT, TOLERATED PO INTAKE. VSS, AFEBRILE.
--- NOTE | 2018-06-20 07:29 | NUR ---
Pt awake, alert and oriented x3. Pt is on ra, resp even and non labored. Pt reporting nausea has subsided. Pt denies pain. Personal supplies and call light within reach. No needs at this time. Call light within reach.
== END 2018-06-20 11:32 | disposition home or self-care (01) ==
LOC: ED 19:01 → MS 19:03
PROVIDERS: ADMIT Internal Medicine
DX: A08.4 Viral intestinal infection, unspecified (principal); G43.809 Other migraine, not intractable, without status migrainosus; N40.0 Benign prostatic hyperplasia without lower urinary tract symptoms; G89.29 Other chronic pain; Z87.891 Personal history of nicotine dependence; Z79.899 Other long term (current) drug therapy; Z86.61 Personal history of infections of the central nervous system
CPT/HCPCS: 36415; 80048; 80053; 83605; 83735; 85025; 85651; 96361; 96374; 96375; 96376; 99284-25; C9113; G0378; J1170; J2405; J2765; J7030

== ENCOUNTER 2018-06-24 10:16 | Emergency (ER) | payer OTHER ==
[~2018-06-24] VITALS: Ht 188 cm; Wt 79.7 kg
[~2018-06-24 10:16] MED LIST changes: +TAMSULOSIN HCL0.4 MG PO
--- OUTSIDE RECORDS SUMMARY | 2018-06-24 10:22 | XMS ---
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 Kerrie has no Care Guidelines for this patient. [facility] MO[facility] NOTE: Visits indicate total known visits. ED/C VISIT TRACKING (12 MO.) 06/24/2018 10:[address] [facility] [place] TYPE: Emergency COMPLAINT: - L FOOT PAIN,INJURY 06/18/2018 19:02 [facility] [place] TYPE: Emergency COMPLAINT: - POSS MENINGITIS 12/24/2017 14:37 [facility] [place] TYPE: Emergency COMPLAINT: - PAIN/VOMITING INPATIENT VISIT TRACKING (12 MO.) 06/18/2018 19:03 [facility] [place] TYPE: Observation COMPLAINT: - NAUSEA/VOMITING DIAGNOSES: - Vomiting, unspecified - Personal history of infections of the central nervous system - Other chronic pain - Viral intestinal infection, unspecified - Other migraine, not intractable, without status migrainosus - Other mcfp (current) drug therapy - Personal history of nicotine dependence - Benign prostatic hyperplasia without lower urinary tract symptoms 12/26/2017 14:07 [facility] [place] TYPE: Medical Surgical COMPLAINT: - MENINGITIS DIAGNOSES: - Viral meningitis, unspecified - Nicotine dependence, cigarettes, uncomplicated - Other acute sinusitis [email or web address]
[2018-06-24] MEDS ORDERED: KEFLEX500 MG PO (11:42)
== END 2018-06-24 11:49 | disposition home or self-care (01) ==
LOC: ED 10:16
DX: S91.332A Puncture wound without foreign body, left foot, initial encounter (principal); L03.116 Cellulitis of left lower limb; W22.8XXA Striking against or struck by other objects, initial encounter; Z79.899 Other long term (current) drug therapy
CPT/HCPCS: 90471; 90715; 99283-25

== ENCOUNTER 2019-09-13 06:58 | Inpatient (IN) | payer MEDICARE, OTHER ==
[~2019-09-13] VITALS: Ht 188 cm; Wt 83.5 kg
[~2019-09-13 06:58] MED LIST changes: +KEFLEX500 MG PO
--- OUTSIDE RECORDS SUMMARY | 2019-09-13 07:02 | XMS ---
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 Care History Medical/Surgical 06/29/2018 [facility] - PATIENT HAS AN APT WITH DR JULIO ON 06/30/18 @ 6:00PM FOR INPATIENT FOLLOW UP. - Patient is currently established with [facility]. If patient is seen in the ED during business hours. Please contact CHWs at [facility]. Care Recommendation: This patient has had 5 or more Emergency Department visits in the last 12 months.\T\nbsp; Patient requires education on the scope and purpose of the ED as an acute care provider not a Primary Care Provider and should not be utilized for chronic conditions.\T\nbsp; These are guidelines and the provider should exercise clinical judgment when providing care. 06/26/2018 [facility] - [facility] CASE MANAGEMENT REFERRAL MADE - HELP PATIENT WITH PCP SET UP. E.D. VISIT COUNT (12 MO.) 1 [facility] TOTAL 1 NOTE: Visits indicate total known visits. ED/UCC VISIT TRACKING (12 MO.) 09/13/2019 06:59 [facility] [place] TYPE: Emergency COMPLAINT: - POSS MENINGITIS FLARE UP INPATIENT VISIT TRACKING (12 MO.) No inpatient visits to display in this time frame [id number]
--- NOTE | 2019-09-13 16:17 | NUR ---
STAFF IN ROOM TRYING TO START NEW IV. CM WILL SEE TOMORROW.
--- NOTE | 2019-09-13 16:30 | NUR ---
PT ARRIVED ON THE FLOOR AT 1555. PT HAS A TEMP OF 101.0 F UPON ARRIVAL, PAIN IS 9/10, RLL HAS EXPIRATOTY WHEEZING PRESENT. PT ALSO HAS A DRY COUGH. ALL OTHER LOBES ARE CLEAR, ABD IS SOFT BUT TENDER TO TOUCH, BOWEL TONES ARE PRESENT. NEUROLOGICALLY PT IS INTACT BUT DOES HAVE SOME BLURRED VISION WHEN THE HEADACHE IS PRESENT. PEIDS PULSES +1 AND CAP REFILL IS >3SEC. SKIN IS PALE OVERALL. OTHER V/S A RE WDL AT THIS TIME.
--- NOTE | 2019-09-13 18:28 | NUR ---
PT AT THIS TIME IS SLEEPING. NO NEW CONCERNS NOTED.
--- NOTE | 2019-09-13 19:00 | NUR ---
Report received, orders acknowledged.
--- NOTE | 2019-09-13 20:00 | NUR ---
Patient laying in bed with eyes closed, hand to forehead. Rouses easily to voice. Fluids infusing at 100 mls/hr. Vital signs taken, assessment complete. Slight expiratory wheezes auscultated in upper left lobe, clear lung sounds throughout remaining aguirre. Patient disoriented to day of week. Headache present, pain of 6/10. Cold cloth applied to forehead. Patient reports "burning pain down spine." Patient afebrile. Patient reports nausea, denies need for prn antiemetic. Chills noted, denies need for warm blanket. Denies further needs at this time, call light within reach.
--- NOTE | 2019-09-13 20:30 | NUR ---
Patient laying in bed with eyes closed, grimacing. Reports pain of 8/10 from headache, prn pain medication given (see MAR). Fluids infusing at 100 mls/hr. Cold cloth applied to forehead. Denies further needs, call light within reach.
--- NOTE | 2019-09-13 21:15 | NUR ---
Patient reports nausea, begins dry heaving into emesis bag. 6.25mg of phenergan given. Patient lays back in bed. Chills continue, temp of 100.3. Patient reports pain in lower back at site of LP. No signs of inflammation at site. Warm pack applied to lower back. 2124 - Patient reports nausea subsiding with medication. Emesis bag at bedside. Patient laying in bed on right side with eyes closed. Hot tea provided upon request. Call light within reach.
--- NOTE | 2019-09-13 22:08 | NUR ---
Temp of 100.3, prn acetaminophen given (see MAR). One episode of dry heaving, patient continuing to report nausea, though alleviated from earlier. Patient encouraged to void using urinal. Call light within reach.
--- NOTE | 2019-09-13 23:18 | NUR ---
Patient desaturating into the upper 80's while sleeping, 2LNC in place. SpO2 rises to 95%. Temp of 100.3, will continue to monitor. Patient reports pain of 5/10, denies need for prn pain medication. Fluids infusing at 100 mls/hr. Patient stands at bedside to use urinal, steady on feet. 300 mls of brent urine produced. Patient returns to bed, blankets provided. Denies further needs, call light within reach.
--- NOTE | 2019-09-13 23:52 | NUR ---
Patient sleeping in bed, respirations even and unlabored. SpO2 of 97% on 2LNC, RR of 14. IV acyclovir hung at 250 mls/hr. Call light within reach.
--- NOTE | 2019-09-14 00:51 | NUR ---
Patient sleeping in bed, respirations even and unlabored. SpO2 of 95% on 2LNC, RR of 14. HR in the 60's. IV acyclovir continues to infuse at 250 mls/hr. Call light within reach.
--- NOTE | 2019-09-14 02:22 | NUR ---
PT CONTS TO SLEEP. HR 53.
--- NOTE | 2019-09-14 03:59 | NUR ---
HEARD SOUNDS OF RETCHING, IN TO SEE PT LEANING OVER EDGE OF BED SPITTING INTO GARBAGE CAN. GIVEN 6.25G PHENERGAN IV FOR NAUSEA AND THEN 4MG MORPHINE IV FOR VELAZCO THAT WORSENS WITH RETCHING. WHEN ASKED IF NEEDED TO VOID PT STATED HE WOULD NEED TO SOON.
--- NOTE | 2019-09-14 04:36 | NUR ---
IS ASLEEP BUT IS RESTLESS IN SLEEP.
--- NOTE | 2019-09-14 05:36 | NUR ---
LAB IN TO DRAW. PT STATES VELAZCO IS BETTER.
--- NOTE | 2019-09-14 07:22 | NUR ---
SAT EDGE OF BED BACK HURTING, BECAME NAUSEATED WITH RETCHING THEN HAD VELAZCO. GIVEN 6.25MG PHENERGAN IV THEN 4MG MORPHINE IV.
--- NOTE | 2019-09-14 08:01 | NUR ---
REPORT REC'D FROM FOREST FIRE OFFICER. IN TO SEE PATIENT AT THIS TIME. PATIENT STATES HIS PAIN IS NOW A 6/10, BASE OF SKULL NECK AREA. VITALS AND ASSESSMETN COMPLETE AT THIS TIME.
--- NOTE | 2019-09-14 10:19 | NUR ---
PATIENT UP TO EDGE OF BED TO VOID. PT BECOMES VERY NAUSEOUS WITH THIS MOVEMENT AND ALMOST VOMITS, BUT DOESN'T. COLD WASH CLOTH TO BACK OF NECK AND ALSO GIVEN AN ICE PACK FOR BACK OF NECK. PT GIVEN MORPHINE, TYLENOL, AND ZOFRAN AT THIS TIME. DR. BERNARDO CALLED AND UPDATED ON PT'S URINE OUTPUT AND ALSO ON HIS HOME MEDICATION OF FLOMAX.
--- NOTE | 2019-09-14 12:42 | NUR ---
PATIENT ASLEEP AT THIS TIME. ASSESSMENT DEFFERED UNTIL PATIENT AWAKE. VITALS STABLE. IVF CONTINUE AT 100 ML/HR.
--- NOTE | 2019-09-14 14:08 | NUR ---
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 Ice pack given, pt states he is feeling better, is alert and conversant, skin is pink, warm and dry to the touch. No other needs at this time.
--- NOTE | 2019-09-14 15:45 | NUR ---
Spoke with NATHALIA. He lives alone, near [place]. Daughter lives out of the area. 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 Denies use of DME, Lives in a 1 story house with 1 steps. Neighbors own the [employer] and he states he could call them if needed. Plans on dc to home when discharged and will drive self.
--- NOTE | 2019-09-14 15:53 | NUR ---
PATIENT REQUESTING MORE PAIN MEDICATION AT THE 2 HOUR [place] FROM HIS LAST DOSE. PATIENT HAS BEEN TRYING TO SIT UP MORE AND HAS TRIED TO SIP ON SOME CLEAR LIQUIDS AND EVEN TRYING SOME JELLO. WITH ANY MOVEMENT HOWEVER, PATIENT BECOMES VERY DIZZY AND NAUSEOUS QUICKLY AFTER. PT HAS RETCHED TODAY, BUT NO ACTUAL VOMITING THUS FAR. CONTINUE TO MONITOR.
--- NOTE | 2019-09-14 20:11 | NUR ---
PT WAS JUST UP TO VOID WHICH INCREASED VELAZCO. GIVEN 30MG TORRADOL IV. EXPLAINED TO PT THAT HE COULD STILL RECEIVE MORPHINE BUT WOULD TRY TORRADOL FIRST AND SEE IF IT HELPED TO DECREASE THE AMT OF MORPHINE HE MIGHT NEED. AT FIRST PT STATED NAUSEA WAS OK BUT IT DID WORSEN WITH INC MOVEMENT AND WAS GIVEN 5MG COMPAZINE IV. 1 L LR BOLUS WAS STARTED. PT STILL ONLY ABLE TO TAKE SMALL AMTS WATER DUE TO NAUSEA.
--- NOTE | 2019-09-14 22:25 | NUR ---
C/O BEING "CHILLED" T 97.5. GIVEN WARM BLANKET AND FELT BETTER ALMOST IMMEDIETLY. VELAZCO 6 1/0. GIVEN 4MG MORPHINE IV.
--- NOTE | 2019-09-15 00:15 | NUR ---
AWAKENS EASILY, STATES VELAZCO IS BETTER. TAKING ICE CHIPS. BACK TO SLEEP EASILY.
--- NOTE | 2019-09-15 02:05 | NUR ---
SLEEPING, AWAKENS EASILY. NO C/O AT THIS TIME.
--- NOTE | 2019-09-15 02:50 | NUR ---
PT CALLED, C/O BEING COLD AND C/O VELAZCO. REQUESTING MORPHINE FOR VELAZCO SO HE CAN GO BACK TO SLEEP. GIVEN 4MG ZOFRAN IV STARTING TO BE NAUSEATED, AND THEN 4MG MORPHINE. ALSO GIVEN WARM BLANKET.
--- NOTE | 2019-09-15 04:12 | NUR ---
IS SLEEPING, RESP REG.
--- NOTE | 2019-09-15 04:36 | NUR ---
AWAKENED FOR ASSESSMENT, VELAZCO AND NAUSEA ARE BETTER.
--- NOTE | 2019-09-15 05:45 | NUR ---
SUDDEN ONSET NAUSEA WITH RETCHING AND THEN INCREASED VELAZCO. GIVEN 30MG TORRADOL IV AND 12.5MG PHENERGAN IV.
--- NOTE | 2019-09-15 08:22 | NUR ---
IN PATIENT'S ROOM FOR ASSESSMENT AND VITALS. PT REPORTS FEELING OVERALL BETTER. PT EXPRESSES DESIRE TO TAKE A SHOWER TODAY. BREAKFAST ORDERED FOR PATIENT. PATIENT RATES HIS PAIN 7/10 IN HIS HEAD AT THIS TIME. PT NOTES ABILITY TO MOVE HEAD AROUND MORE WITH LESS TENDERNESS OVERALL. PT DENIES BLURRY VISION.
--- NOTE | 2019-09-15 11:23 | NUR ---
DR. JULIO IN ROOM TO SEE PATIENT. DISCUSSING PLAN OF CARE. PATIENT WILL LIKELY TRANSFER TO MEDICAL FLOOR TODAY WITHOUT TELEMETRY. PT CAN BE ADVANCED TO REGULAR DIET. PT STATES OVERALL HE IS FEELING BETTER WITH LESS NECK TENDERNESS AND HIS HEADACHE IS BETTER UNDER CONTROL AT THIS TIME.
--- NOTE | 2019-09-15 14:00 | NUR ---
REPORT GIVEN TO AIDEN RN ON MED/SURG WHO WILL RESUME CARE OF PATIENT ON MED/SURG. PT WILL GO TO ROOM 114. PT SHOWERED AND STATES HE FEELS EVEN BETTER AFTER SHOWERING. PT'S 1400 ACYCLOVIR TO BE STARTED.
--- NOTE | 2019-09-15 15:00 | NUR ---
Spoke with pt briefly. States he will transfer to the floor today. Denies needs.
--- NOTE | 2019-09-15 15:22 | NUR ---
PATIENT STARTING TO BECOME NAUSEOUS AGAIN AND PAIN CREEPING BACK UP. PATIENT GIVEN MORPHINE AND COMPAZINE AT THIS TIME. PT STILL TO TRANSFER TO MEDICAL FLOOR ROOM 114. PT STILL HAVING CHILLS AT TIMES.
--- NOTE | 2019-09-15 15:30 | NUR ---
MED REC COMPLETE
--- NOTE | 2019-09-15 16:30 | NUR ---
PT ARRIVED TO ROOM 116 AT THIS TIME. HE IS ALERT AND ORIENTED. HE REPORTS PAIN AND NAUSEA ARE UNDER CONTROL AT THIS TIME.
--- NOTE | 2019-09-15 16:53 | NUR ---
PT UP TO BATHROOM SBA. HIS GAIT IS SLIGHTLY UNSTREADY.
--- NOTE | 2019-09-15 17:17 | NUR ---
PT REPORTS 6/10 VELAZCO PAIN, GIVEN 650 MG PO PRN AT THIS TIME,
--- NOTE | 2019-09-15 17:24 | NUR ---
UPDATED THAT PT PLANS TO DISCHARGE TOMORROW AND DRIVE HIMSELF HOME TO [facility]. HIS PICKUP IS IN THE PARKING LOT.
--- NOTE | 2019-09-15 18:24 | NUR ---
PATIENT SITTING UP ON THE EDGE OF THE BED TAKING HIS DINNER. VITAL SIGNS AND I&O DONE. CALL LIGHT WITHIN REACH. NO OTHER NEEDS AT THIS TIME
--- NOTE | 2019-09-15 20:02 | NUR ---
PATIENT WANTS TO SLEEP AND NOT BE BOTHERED FROM 10PM-6AM. PATIENT UP AD FAHEEM AND CURRENTLY HEADED TO THE BATHROOM, HAS NO NEEDS AT THIS TIME. CALL LIGHT IN REACH. PATIENT A+O.
--- NOTE | 2019-09-15 22:15 | NUR ---
PATIENT HAVING 7/10 NECK AND HEAD PAIN , IV TORADOL DID NOT HELP SO PATIENT GETTING 4MG IV MS AND 4MG IV ZOFRAN. THEN PATIENT HAS ASKED THAT HE NOT BE DISTURBED UNLESS HE CALLS UNTIL 6AM.
--- NOTE | 2019-09-16 00:41 | NUR ---
PATIENT RESTING QUIETLY AND HAS ORDRS FROM DR. JULIO NOT TO BE DISTURBED UNLESS HE CALLS.
--- NOTE | 2019-09-16 03:52 | NUR ---
PATIENT CALLED FOR PAIN MEDICATION FOR 10/10 PAIN OF THE HEAD AND NECK. 4MG IV ZOFRAN WAS GIVEN AND THEN 4MG IV MS. CALL LIGHT IN REACH AND PAIN IS EASING. PATIENT NOT GETTING NAUSEATED LAST TIME.
--- NOTE | 2019-09-16 06:44 | NUR ---
JUST FINISHED SITTING WITH PATIENT AFTER GIVING HIM 12.5MG IV PHENERGAN FOR NAUSEA AND 2MG OF IV MORPHINE FOR HEAD AND NECK PAIN. PATIENT FEELING MUCH BETTER NOW. NEW ICE BAG FILLED FOR HIS NEW AND NEW ICE CHIPS GIVEN EVEN THOUGH HE HAS NOT REALLY KEPT ANYTHING DOWN ALL NIGHT.
--- NOTE | 2019-09-16 07:26 | NUR ---
BEDSIDE REPORT..PT REPORTS HIS PAIN AND NAUSEA IS MANAGED AT THIS TIME. HE VOICED CONCERNS ABOUT LENGTH OF TIME SINCE HE HAS BEEN ABLE TO EAT AND MAINTAIN WITHOUT EMESIS. PT AND RN TO DISCUSS PT CONCERNS WITH MD AT ROUNDS.
--- NOTE | 2019-09-16 09:29 | NUR ---
PT REPORTS PAIN 8-12/15, HE HAS CONCERNS ABOUT HIS CARE PLAN AND RECOVERY FOR . HE HAS COMPLAINTS ABOUT THE TASTE OF WATER AND THE QUALITY OF FOOD.
--- NOTE | 2019-09-16 10:30 | NUR ---
PT GIVEN ICE PACK FOR THE BASE OF HEAD AND HEAT PACKS FOR SHOULDERS TENSITY. PT REPORTS IMPROVED DISCOMFORT ON PLACEMENT.
--- NOTE | 2019-09-16 12:41 | NUR ---
INTO SEE PT AND DISCUSS PLAN OF CARE. PT REQUESTED NAUSEA AND PAIN MEDICATIONS, MORPHINE 4 MG AND 4MG ZOFRAN GIVEN AT THIS TIME
--- NOTE | 2019-09-16 14:11 | NUR ---
RECIEVED REPORT FROM GABE WOLFE. INTRODUCED SELF TO PATIENT. IV MEDICATIONS ADIMINISTERED PRESCRIBED. DENIES OTHER NEEDS AT THIS TIME. ASSESSMENT COMPLETED. BED RAILS UP X2, CALL LIGHT IN REACH.
--- NOTE | 2019-09-16 15:53 | NUR ---
Spoke with NATHALIA. States he had a very rough night last night with increased headache and nausea. Does not feel he is ready to go home.
--- NOTE | 2019-09-16 20:00 | NUR ---
PATIENT SAYS PAIN IS UNDER CONTROL, INDEPENDENT IN ROOM, STILL A LITTLE PHOTO-SENSITIVITY. PATIENT CALL LIGHT IN REACH.
--- NOTE | 2019-09-16 22:00 | NUR ---
PATIENT SAYS HE IS DOING OK PAIN PELLETIER AND IS HAVING NO NAUSEA. WATER REFILLED AND NEW ICE CHIPS AND ICE BAG GIVEN. CALL LIGHT IN REACH.
--- NOTE | 2019-09-16 22:50 | NUR ---
VITALS AND I&OS DONE AND CHARTED. FRESH ICE WATER AND ICE PACK GIVEN. BEDSIDE TABLE AND CALL LIGHT IN REACH.
--- NOTE | 2019-09-16 23:28 | NUR ---
PATIENT CALLED FOR 8/10 HEAD AND NECK PAIN. 12.5MG OF PHENERGAN IN 20MLS NS GIVEN AND 4MG IV MS. PATIENT RELAXING NOW AND GOING TO TRY AND GET SOME SLEEP. CALL LIGHT IN REACH.
--- NOTE | 2019-09-16 23:58 | NUR ---
PATIENT RESTING QUIETLY IN LOW FOWLERS POSITION, EYES CLOSED RESPIRATIONS REGULAR AND EVEN. CALL LIGHT IN REACH.
--- NOTE | 2019-09-17 01:56 | NUR ---
PATIENT STILL RESTING QUIETLY SINCE HIS LAST PAIN MEDICATION AND NAUSEA MEDICATION GIVEN. CALL LIGHT IN REACH.
--- NOTE | 2019-09-17 04:03 | NUR ---
PATIENT IS STILL RESTING QUIETLY AND HAS NOT CALLED FOR ANYTHING SINCE HIS LAST PAIN MEDICATION. CALL LIGHT IN REACH.
--- NOTE | 2019-09-17 05:44 | NUR ---
PATIENT SLEPT PRETTY WELL PER HIS REPORT, BUT PAIN WAS BACK UP TO AN 8/10 IN HIS NECK AND HEAD AND WANTED TO CUT DOWN TO 3MG OF IV MORPHINE FROM THE 4MG HE HAD LAST TIME AND THE 12.5MG OF IV PHENERGAN WAS REPEATED TO KEEP NAUSEA DOWN AND SEEMS TO BE WORKING WELL. PATIENT STILL INDEPENDENT IN THE ROOM AND TRY TO GET SOME MORE SLEEP. CALL LIGHT IN REACH.
--- NOTE | 2019-09-17 08:00 | NUR ---
PT REPORTS HEADACHE IS MUCH IMPROVED THIS AM, WANTS ONLY TYLENOL FOR HEADACHE, STATES MORPHINE IS HELPING WITH CHRONIC NECK PAIN HE HAS. UP IN ROOM INDEPENDANT THIS AM, BREAKFAST ORDERED, DENIES ANY NEEDS, IN GOOD SPIRITS.
--- NOTE | 2019-09-17 08:16 | NUR ---
PATIENT UP IN BATHROOM, REQUESTED HOT TEA AND ANOTHER ICE PACK. CALL LIGHT WITHIN REACH. NO OTHER NEEDS AT THIS TIME.
--- NOTE | 2019-09-17 10:15 | NUR ---
PATIENT UP IN ROOM, VITALS AND I&OS DONE AND CHARTED. CALL LIGHT IS WITHIN REACH. PATIENT REPORTS FEELING MUCH BETTER TODAY
--- NOTE | 2019-09-17 10:45 | NUR ---
Spoke with NATHALIA. He is sitting up in chair. Feels he turned a corner last night and is feeling much better. He is wanting to go home, but will follow what ever Dr. Agarwal asks. Pt denies any needs to go home. States he has everything he needs at home and will call his neighbors if he needs something. Pt plans on driving self. Cont. with light sensitivity, but this and headache have improved.
--- NOTE | 2019-09-17 12:15 | NUR ---
PT SITTING IN CHAIR-ALERT, ORIENTED AND JUST STARTING LUNCH. HAD PLEASANT VISIT WITH PT, FEELING MUCH BETTER. EXPRESS FEELINGS THAT HE WISHES HE COULD STOP HAVING TO DEAL WITH THIS. FEELS CONFIDENT IN CARE RECEIVED AT [facility]. PLANS TO DC HOME TODAY. GAVE BLESSING
[2019-09-17] MEDS ORDERED: ACYCLOVIR400 MG PO (12:28)
--- NOTE | 2019-09-17 13:00 | NUR ---
DISCHARGE INSTRUCTIONS GIVEN TO PATIENT, VERBALIZES UNDERSTANDING OF FOLLOWUP APPOINTMENT AND MEDICATIONS, DENIES ANY CONCERNS OR QUESTIONS, DISCHARGED WITH ALL PERSONAL BELONGINGS.
== END 2019-09-17 13:00 | disposition home or self-care (01) | DRG 76 ==
LOC: ED 06:58 → CCU 15:06 → MS 09-15 16:30
PROVIDERS: ADMIT Internal Medicine
PROC: 009U3ZX Drainage of Spinal Canal, Percutaneous Approach, Diagnostic (ICD-10-PCS; principal; 2019-09-13)
PROC: B01BZZZ Fluoroscopy of Spinal Cord (ICD-10-PCS; 2019-09-13)
DX: B00.3 Herpesviral meningitis (principal); R26.2 Difficulty in walking, not elsewhere classified; G89.29 Other chronic pain; N40.0 Benign prostatic hyperplasia without lower urinary tract symptoms; Z79.899 Other long term (current) drug therapy
CPT/HCPCS: 36415; 70450; 77002; 80048; 80053; 82945; 83735; 84157; 85025; 85032; 85610; 85651; 86140; 87070; 87205; 89051; 96361; 96365; 96375; 96376; 99285-25; C9113; J0133; J0780; J1885; J2270; J2405; J2550; J3480; J7030; J7060; J7121; U0002

== ENCOUNTER 2020-02-21 12:30 | Day surgery (SDC) | payer MEDICARE ==
[~2020-02-21] VITALS: Ht 188 cm; Wt 84.5 kg
--- NOTE | 2020-02-21 13:36 | NUR ---
PRE-PROCEDURE INTAKE COMPLETE. PT RESTING IN LOCKED AND LOWERED BED, CALL LIGHT WITHIN REACH. NO REQUESTS AT THIS TIME.
--- NOTE | 2020-02-21 14:40 | NUR ---
02/21/20 1440 Sheets,Natacha 1430 PT REPORT NAUSEA ON ARRIVAL, VSS. PT LAYS BACK AND FLUIDS INCREASED. PT IS REORIENTED TO PACU, PT REPORTS PAIN IN ABD. RN ENCOURAGES PT TO PASS GAS/AIR. 1435 PT WAKES OFF AND ON, PT RESTLESS WHEN AWAKE AND RN REASSURES PT AND ENCOURAGES PT TO PASS GAS, RN HELPS PT ROLL TO LEFT SIDE.
--- NOTE | 2020-02-21 16:25 | OR ---
[facility] [address], [place] [address] Signed DATE OF OPERATION: 02/21/2020 SURGEON: Delfina Schroeder MD PREOPERATIVE DIAGNOSIS: Episodic rectal bleeding (known reducible left inguinal hernia). POSTOPERATIVE DIAGNOSES: 1. Internal hemorrhoids and possible anal fissure. 2. Sessile polyp at 50 cm (excised). PROCEDURE: Total colonoscopy to cecum with intubation of ileum and biopsies of ileum and cecum, and cold snare polypectomy of polyp. ANESTHESIA: Intravenous sedation with fentanyl 150 mcg and Versed 5 mg. INDICATION: This 64-year-old white man has had complaints of rectal bleeding. He is also known to have a left inguinal hernia, which is reducible. He is admitted to undergo colonoscopy to better characterize the bleeding problem, particularly should neoplasm be found, for which concurrent hernia repair might be undertaken. The risks of bleeding, infection, and perforation related to colonoscopy was reviewed with him. He understands and wished to proceed. FINDINGS: The prep was quite good. Complete colonoscopy was undertaken to the cecum without question. Intubation of the ileum was accomplished as well. Biopsies were taken of the ileum as well as the cecum and a sessile polyp was noted at 50 cm, which was excised with cold snare technique. Additionally, he had a significant amount of tenderness in the anorectum. External examination did not confirm a fissure, but it was a suboptimal setup for evaluating for such findings. Retroflexed view of the scope did confirm internal hemorrhoidal changes and there may well still be a fissure based on his clinical findings. There is no sign of hemorrhoidal thrombosis or external hemorrhoidal disease. PROCEDURE IN DETAIL: The patient was brought to the endoscopy suite and placed in lateral decubitus position given intravenous sedation to the point of slurred speech and nystagmus. Digital rectal Electronically Signed By: DELFINA SCHROEDER MD 02/21/20 1625 PATIENT NAME: Velia YANEZ OPERATIVE REPORT DATE OF : 53 REPORT #: [id number] PHYSICIAN: DELFINA SCHROEDER MD PCP: MABEL JULIO MD REPORT IS CONFIDENTIAL AND NOT TO BE RELEASED WITHOUT AUTHORIZATION [facility] [address], [place] [address] Signed examination was met with much resistance due to discomfort. This is typically a sign of anal fissure. Using the light of the colonoscope to examine the anal canal more fully, one could not clearly discern a fissure. Lidocaine jelly was applied to the scope and was passed into the rectum, still with some discomfort, but manipulated throughout the colon. Additional sedation was given as needed. The scope was ultimately passed into the cecum showing the ileocecal valve and appendiceal orifice. The scope was then manipulated into the ileum. The ileum appeared normal. Biopsies were obtained there nevertheless. The scope was withdrawn and biopsy was then taken of the cecum. The scope was carefully withdrawn showing no sign of abnormality until 50 cm from the anal verge, where a small sessile polyp was noted. This was excised with cold snare technique. Morcellation biopsy was used to complete the polypectomy fully. The scope was further withdrawn and retroflexed view in the rectum undertaken showing internal hemorrhoidal changes and some inflammatory change and edema. With careful manipulations, an area that might well have represented a fissure was noted. Withdrawal of scope through the anal canal did not clearly demonstrate fissures, though I still suspect it is present. Scope was removed and the patient was taken to the recovery room in good condition. CONCLUDING DIAGNOSES: 1. Left inguinal hernia, reducible. 2. Internal hemorrhoid, possible anal fissure. 3. Polyp of left colon. PLAN: We will initiate a fiber supplement at this time. He may require diltiazem depending if a fissure can anteriorly be identified in the office setting. Repair of the hernia is anticipated as well. MD FORREST Medina/ALBANIAL /[id number] cc: Mabel Julio MD Electronically Signed By: DELFINA SCHROEDER MD 02/21/20 1625 PATIENT NAME: Velia YANEZ OPERATIVE REPORT DATE OF : 53 REPORT #: [id number] PHYSICIAN: DELFINA SCHROEDER MD PCP: MABEL JULIO MD REPORT IS CONFIDENTIAL AND NOT TO BE RELEASED WITHOUT AUTHORIZATION [facility] [address], [place] [address] Signed Copies: MABEL JULIO MD ~ Electronically Signed By: DELFINA SCHROEDER MD 02/21/20 1625 PATIENT NAME: Velia YANEZ OPERATIVE REPORT DATE OF : 53 REPORT #: [id number] PHYSICIAN: DELFINA SCHROEDER MD PCP: MABEL JULIO MD REPORT IS CONFIDENTIAL AND NOT TO BE RELEASED WITHOUT AUTHORIZATION
--- NOTE | 2020-02-21 22:10 | EKG ---
[facility] [address] [place] [address] Signed Sinus bradycardia with premature atrial complexes with aberrant conduction Otherwise normal ECG No previous ECGs available Confirmed by NEDA BERNARDO MD ([id number]) on 02/21/2020 10:09:57 PM Electronically Signed By: NEDA BERNARDO MD 02/21/202209 PATIENT NAME: Velia YANEZ Electrocardiogram DATE OF : 53 PHYSICIAN: NEDA BERNARDO MD REPORT #: [id number] REPORT IS CONFIDENTIAL AND NOT TO BE RELEASED WITHOUT AUTHORIZATION
== END 2020-02-21 15:30 | disposition home or self-care (01) ==
LOC: OPS 12:30 → DS 12:30 → OPS 14:00
PROVIDERS: ATTEND Surgery
PROC: 0DBB8ZX Excision of Ileum, Via Natural or Artificial Opening Endoscopic, Diagnostic (ICD-10-PCS; 2020-02-21)
PROC: 0DBE8ZX Excision of Large Intestine, Via Natural or Artificial Opening Endoscopic, Diagnostic (ICD-10-PCS; 2020-02-21)
PROC: 0DBH8ZX Excision of Cecum, Via Natural or Artificial Opening Endoscopic, Diagnostic (ICD-10-PCS; principal; 2020-02-21 14:00)
DX: K62.5 Hemorrhage of anus and rectum (principal); D12.6 Benign neoplasm of colon, unspecified; K64.8 Other hemorrhoids; K40.90 Unilateral inguinal hernia, without obstruction or gangrene, not specified as recurrent; K59.00 Constipation, unspecified; N40.1 Benign prostatic hyperplasia with lower urinary tract symptoms; R39.11 Hesitancy of micturition; K21.9 Gastro-esophageal reflux disease without esophagitis; F32.9 Major depressive disorder, single episode, unspecified; Z79.899 Other long term (current) drug therapy
CPT/HCPCS: 93005; 93010; 99153; G0500; J2250; J3010; J7121

== ENCOUNTER 2020-02-29 07:58 | Day surgery (SDC) | payer MEDICARE ==
[~2020-02-29] VITALS: Ht 188 cm; Wt 81.8 kg
--- NOTE | 2020-02-29 11:03 | NUR ---
DENIES PAIN OR NAUSEA. REMAINS WAITING FOR SURGERY. SURGERY DELAYED PER ANESTHESIA DUE TO PT HAVING BREAKFAST THIS MORNING.
--- NOTE | 2020-02-29 11:05 | NUR ---
STEADY ON FEET WITH ONE PERSON STAND BY ASSIST FOR AMBULATION TO BR FOR UNMEASURED URINE VOID. RETURNS TO BED WITHOUT PROBLEMS.
--- NOTE | 2020-02-29 15:33 | NUR ---
02/29/20 1533 Kiana Lundberg 1528 PATIENT ARRIVES TO PACU SLEEPING, AWAKENS WITH VERBAL STIMULI. RESP EVEN AND UNLABORED, MASK AT 6 LITERS.
[2020-02-29] MEDS ORDERED: IBUPROFEN600 MG PO (15:37)
[2020-02-29] MEDS ORDERED: OXYCODON-ACETA1 EAC2 PO (15:37)
[2020-02-29] MEDS ORDERED: ACETAMINOPHEN500 MG PO (15:37)
--- NOTE | 2020-02-29 16:09 | NUR ---
PT ARRIVED TO DAY SURGERY RM 4 FROM PACU. ICE WATER PROVIDED. PT RESTING IN LOCKED AND LOWERED BED, SIDE RAILS UP, CALL LIGHT WITHIN REACH. NO FURTHER REQUESTS AT THIS TIME.
--- NOTE | 2020-02-29 16:42 | NUR ---
PT USES CALL LIGHT TO ASK FOR URINAL. PT VOIDS 510ML WITH NO COMPLICATIONS. PT RESTING IN LOCKED AND LOWERED BED, SIDE RAILS UP, CALL LIGHT WITHIN REACH. NO FURTHER REQUESTS AT THIS TIME.
--- NOTE | 2020-02-29 17:20 | NUR ---
DISCHARGE INSTRUCTIONS DISCUSSED WITH PT AND QUESTIONS ADDRESSED. PT DRESSED INDEPENDENTLY. PT LEFT DAY SURGERY RM 4 VIA WHEELCHAIR. PT TRANSFERRED FROM WHEELCHAIR TO VEHICLE INDEPENDENTLY WITH NO COMPLICATIONS. FRIEND MONI PROVIDED TRANSPORTATION.
--- NOTE | 2020-03-01 10:51 | OR ---
[facility] [address] [place], [place] [address] Signed DATE OF OPERATION: 02/29/2020 SURGEON: Delfina Schroeder MD PREOPERATIVE DIAGNOSIS: Left inguinal hernia. POSTOPERATIVE DIAGNOSIS: Left direct inguinal hernia. PROCEDURE: Repair of left inguinal hernia with implantation of Prolene mesh, underlay technique. ANESTHESIA: General, LMA; Heena Mclaughlin CRNA, and local 20 mL of 0.25% Marcaine with epinephrine. INDICATIONS: This 64-year-old white man is a patient of Dr. Mabel Julio. He is found to have reducible left inguinal hernia. He is admitted to undergo repair, understand well the risks of bleeding, infection, recurrence, chronic pain, cord injury, and other unforeseen complications. Understanding this, he wished to proceed. FINDINGS: A moderately large direct hernia was identified. There was no sign of indirect sac. Invagination of the herniated area was undertaken with implantation of Prolene mesh in an underlay technique. Cord structures were well preserved. DESCRIPTION OF PROCEDURE: The patient was brought to the operating room and given a general anesthetic by LMA technique. Preoperative antibiotic, Ancef was given. Sequential compression device stockings used and heparin subcutaneously administered previously. After satisfactory anesthesia, the lower abdomen was clipped and prepared with a chlorhexidine solution and draped sterilely. A small incision was made cephalad to the pubic tubercle. Dissection was carried through the subcutaneous tissue with electrocautery. The external oblique was incised along its fibers revealing the underlying cord. The cord was mobilized from the floor with blunt electrocautery dissection and mobilized fully and a Adina drain placed around it. The cremasteric muscle fibers of the cord were transected showing no sign of indirect sac. There was, however, a rather bulky direct defect in association with the cord initially, but medial to the inferior epigastric vessels. This was dissected free more fully. Invagination of this herniated portion was deemed most Electronically Signed By: DELFINA SCHROEDER MD 03/01/20 1051 PATIENT NAME: Velia YANEZ OPERATIVE REPORT DATE OF : 53 REPORT #: [id number] PHYSICIAN: DELFINA SCHROEDER MD PCP: MABEL JULIO MD REPORT IS CONFIDENTIAL AND NOT TO BE RELEASED WITHOUT AUTHORIZATION [facility] [address] [place], [place] [address] Signed advisable for repair in addition to implantation of mesh. The attenuated fibers of the fascia of the transversalis were incised with electrocautery and using blunt dissection, properitoneal fat . The segment of Prolene mesh was cut to an elliptical configuration and secured in an underlay technique with interrupted 2-0 Prolene sutures. The defect was cut in the graft to accommodate the cord and the tails of the graft were secured laterally with special care to avoid encumbrance of regional nerves. Once hernia repair was complete, the cord was replaced in the canal. The external oblique reapproximated with running 2-0 Vicryl. Kimberley layer was reapproximated with interrupted 2-0 Vicryl and skin closed with running subcuticular 3-0 Vicryl. Steri-Strips were applied as was a silver sponge dressing. The patient was ultimately extubated and transferred to the recovery room in good condition having suffered no complications. Sponge, needle, and instrument counts reported correct x3. Blood loss was minimal. Delfina Schroeder MD JM/MODL /[id number] cc: Mabel Julio MD Copies: MABEL JULIO MD ~ Electronically Signed By: DELFINA SCHROEDER MD 03/01/20 1051 PATIENT NAME: Velia YANEZ OPERATIVE REPORT DATE OF : 53 REPORT #: [id number] PHYSICIAN: DELFINA SCHROEDER MD PCP: MABEL JULIO MD REPORT IS CONFIDENTIAL AND NOT TO BE RELEASED WITHOUT AUTHORIZATION
== END 2020-02-29 17:20 | disposition home or self-care (01) ==
LOC: DS 07:58
PROVIDERS: ATTEND Surgery
PROC: 0YU60JZ Supplement Left Inguinal Region with Synthetic Substitute, Open Approach (ICD-10-PCS; principal; 2020-02-29 08:15)
DX: K40.90 Unilateral inguinal hernia, without obstruction or gangrene, not specified as recurrent (principal); N40.1 Benign prostatic hyperplasia with lower urinary tract symptoms; R39.11 Hesitancy of micturition; K21.9 Gastro-esophageal reflux disease without esophagitis; K64.9 Unspecified hemorrhoids; F32.9 Major depressive disorder, single episode, unspecified; Z79.899 Other long term (current) drug therapy; Z20.828 Contact with and (suspected) exposure to other viral communicable diseases; Z01.812 Encounter for preprocedural laboratory examination
CPT/HCPCS: 00830; 90662; C1781; J0330; J0690; J1100; J1644; J1885; J2001; J2250; J2405; J2704; J3475; J7121

== ENCOUNTER 2022-02-16 13:25 | Emergency (ER) | payer MEDICARE ==
[~2022-02-16] VITALS: Ht 188 cm; Wt 81.7 kg
[~2022-02-16 13:25] MED LIST changes: +ACETAMINOPHEN500 MG PO; +IBUPROFEN600 MG PO; +OXYCODON-ACETA1 EAC2 PO
[2022-02-16] MEDS ORDERED: ONDANSETRON ODT8 MG PO (18:53)
== END 2022-02-16 19:10 | disposition home or self-care (01) ==
LOC: ED 13:25
DX: B34.9 Viral infection, unspecified (principal); Z20.822 Contact with and (suspected) exposure to COVID-19
CPT/HCPCS: 36415; 80053; 82947; 84157; 85025; 87502; 89051; 96374; 96375; 96376; 99283-25; A9270; C9803; J1885; J2405; J7030; U0003

== ENCOUNTER 2024-04-12 10:17 | Emergency (ER) | payer MEDICARE ==
[~2024-04-12] VITALS: Ht 188 cm; Wt 85.3 kg
[~2024-04-12 10:17] MED LIST changes: +ONDANSETRON ODT8 MG PO
[2024-04-12 10:25] VITALS: BP 164/79
[2024-04-12] MEDS ORDERED: ONDANSETRON 4 MG TAB ODT SL ONE (11:00)
[2024-04-12] MEDS ORDERED: HYDROCODONE/ACETA 5/325 TAB PO ONE (11:00)
[2024-04-12] MEDS ORDERED: LIDOCAINE HCL 4% 1 EACH PATCH TD ONE (11:00)
[2024-04-12] MEDS ORDERED: predniSONE 20 MG TAB PO ONE (11:00)
[2024-04-12] MEDS ORDERED: KETOROLAC TROMETHAMINE 30 MG/ML VIAL IM ONE (11:00)
[2024-04-12] MEDS ORDERED: HYDROCODON-ACE1 EA11 PO (11:48)
[2024-04-12] MEDS ORDERED: LIDODERM1 EACH TOP (11:48)
[2024-04-12] MEDS ORDERED: PREDNISONE20 MG PO (11:48)
== END 2024-04-12 12:11 | disposition home or self-care (01) ==
LOC: ED 10:17
DX: M54.42 Lumbago with sciatica, left side (principal); Z79.899 Other long term (current) drug therapy
CPT/HCPCS: 96372; 99283; A9270; J1885; J7512